=== PATIENT | female | born 1990 | race Caucasian/White ===

== ENCOUNTER 2021-04-04 10:04 | Inpatient (IN) ==
[2021-04-04] MEDS ORDERED: ONDANSETRON 4 MG/2 ML VIAL ONE (10:36)
[2021-04-04] MEDS ORDERED: HYDROmorphone 2 MG/1 ML VIAL ONE (10:38)
[2021-04-04] MEDS ORDERED: ACETAMINOPHEN 325 MG TABLET PO PRN (10:49)
[2021-04-04] MEDS ORDERED: PROMETHAZINE 25 MG/1 ML VIAL IM PRN (10:49)
[2021-04-04] MEDS: HYDROmorphone 2 MG/1 ML VIAL IV PRN ×3 (11:03→21:03)
[2021-04-04] MEDS: ONDANSETRON 4 MG/2 ML VIAL IV PRN (11:03)
[2021-04-04] MEDS ORDERED: TAMSULOSIN 0.4 MG CAPSULE PO ONE (11:07)
[2021-04-04] MEDS: SODIUM CHLORIDE 0.45% 1,000 ML IV SCH ×2 (11:18→20:54)
[2021-04-04] MEDS: TAMSULOSIN 0.4 MG CAPSULE PO SCH (11:24)
[2021-04-05] MEDS: HYDROmorphone 2 MG/1 ML VIAL IV PRN ×4 (03:55→22:16)
[2021-04-05] MEDS: SODIUM CHLORIDE 0.45% 1,000 ML IV SCH ×2 (05:32→15:36)
[2021-04-05 06:39] LABS: Basophils % 0.4 % (0.0-0.8); Eosinophils # 0.2 10*3/uL (0.0-0.87); Eosinophils % 2.8 % (0.00-10.9); Hematocrit 30.3 VOL% (35.7-47.0); Hemoglobin 10.2 GM/DL (12.0-16.0); Immature Granulocytes % 0.3 %; Immature Granulocytes Absolute 0.02 #; Lymphocytes # 2.2 10*3/uL (1.4-4.0); Lymphocytes % 27.9 % (21.3-54.2); Mean Corpuscular HGB Conc 33.7 GM/DL (32-36); Mean Corpuscular Volume 84.9 FL (87-102); Mean Platelet Volume 10.9 FL (9.6-12.0); Monocytes % 5.9 % (1.7-12.7); Neutrophils % 62.7 % (38.7-73.9); Platelet Count 158 T/CUMM (130-400); Red Blood Count 3.57 MC/CUMM (3.8-5.5); Red Cell Distribution Width 12.7 % (9.3-17.3)
[2021-04-05 06:52] LABS: Calcium 8.2 MG/DL (8.5-10.1); Potassium 3.7 MMOL/L (3.5-5.1)
[2021-04-05] MEDS: cefTRIAXone 1,000 MG in SODIUM CHLORIDE 0.9% 100 ML IV SCH (08:48)
[2021-04-05] MEDS: TAMSULOSIN 0.4 MG CAPSULE PO SCH (08:49)
[2021-04-06] MEDS: HYDROmorphone 2 MG/1 ML VIAL IV PRN ×3 (01:20→08:15)
[2021-04-06] MEDS: SODIUM CHLORIDE 0.45% 1,000 ML IV SCH ×4 (01:20→17:18)
[2021-04-06] MEDS ORDERED: cefTRIAXone 1,000 MG in SODIUM CHLORIDE 0.9% 100 ML IV ONE (06:00)
[2021-04-06] MEDS: ONDANSETRON 4 MG/2 ML VIAL IV PRN ×2 (08:15→13:15)
[2021-04-06] MEDS: TAMSULOSIN 0.4 MG CAPSULE PO SCH (08:16)
[2021-04-06] MEDS ORDERED: ROCURONIUM 50 MG/5 ML VIAL IV ONE ×2 (10:26→10:38)
[2021-04-06] MEDS ORDERED: LIDOCAINE 2% 5 ML VIAL ONE (10:26)
[2021-04-06] MEDS ORDERED: ONDANSETRON 4 MG/2 ML VIAL ONE (10:26)
[2021-04-06] MEDS ORDERED: fentaNYL 100 MCG/2 ML VIAL ONE (10:26)
[2021-04-06] MEDS ORDERED: propofoL 200 MG/20 ML VIAL IV ONE (10:26)
[2021-04-06] MEDS ORDERED: SUCCINYLCHOLINE 200 MG/10 ML VIAL ONE (10:26)
[2021-04-06] MEDS ORDERED: SEVOFLURANE 1 UNIT/15 MINUTE INH ONE (10:39)
[2021-04-06] MEDS ORDERED: LACTATED RINGERS 1,000 ML IV ONE (10:47)
[2021-04-06 11:10] LABS: Bacteria,Urine Occasional /HPF (Few); Bilirubin,Urine Negative (Negative); Blood, Urine Large mg/dL (Negative); Glucose,Urine (UA) Negative (Negative); Ketones,Urine 20 mg/dL (Negative); Mucus,Urine Occasional /LPF (Occasional); Nitrite,Urine Negative (Negative); Protein,Urine Negative; RBC,Urine 293 /HPF (0-4); Squamous Epithelial Cell,Urine Occasional /HPF (0-10); Urine Appearance Slightly Hazy (Clear); Urine Color Yellow (Yellow); Urine Specific Gravity 1.006 (1.001-1.035); Urine Urobilinogen < 2.0 EU/DL (0.2-1.0)
[2021-04-07] MEDS ORDERED: ONDANSETRON 4 MG TABLET PO PRN (06:40)
[2021-04-07 08:07] VITALS: BP 119/58
[2021-04-07] MEDS: cefTRIAXone 1,000 MG in SODIUM CHLORIDE 0.9% 100 ML IV SCH (08:26)
[2021-04-07] MEDS: TAMSULOSIN 0.4 MG CAPSULE PO SCH (08:26)
[2021-04-07 08:52] LABS: Basophils % 0.6 % (0.0-0.8); Eosinophils # 0.1 10*3/uL (0.0-0.87); Hematocrit 30.8 VOL% (35.7-47.0); Immature Granulocytes % 0.4 %; Immature Granulocytes Absolute 0.03 #; Lymphocytes # 1.7 10*3/uL (1.4-4.0); Lymphocytes % 24.5 % (21.3-54.2); Mean Corpuscular HGB Conc 32.5 GM/DL (32-36); Mean Corpuscular Volume 84.6 FL (87-102); Mean Platelet Volume 11.5 FL (9.6-12.0); Monocytes % 4.6 % (1.7-12.7); Neutrophils % 67.9 % (38.7-73.9); Platelet Count 182 T/CUMM (130-400); Red Blood Count 3.64 MC/CUMM (3.8-5.5); Red Cell Distribution Width 12.7 % (9.3-17.3)
[2021-04-07] MEDS ORDERED: MULTIVITAMIN (PRENATAL) TABLET PO SCH (09:00)
[2021-04-07] MEDS ORDERED: FOLIC ACID 1 MG TABLET PO SCH (09:00)
[2021-04-07 09:11] LABS: Calcium 8.6 MG/DL (8.5-10.1); Osmolality,Calculated 269.7 MOS/KG (273-304); Potassium 3.9 MMOL/L (3.5-5.1)
[2021-04-09] MEDS ORDERED: cefTRIAXone 1,000 MG in SODIUM CHLORIDE 0.9% 100 ML IV ONE (07:00)
== END 2021-04-07 10:38 | disposition home or self-care (01) | DRG 818 ==
LOC: N.EDINP 10:04 → N.ED 10:04 → N.5E 13:58
PROVIDERS: ADMIT Surgery; ATTEND Surgery

== ENCOUNTER 2021-08-27 15:31 | Inpatient (IN) ==
[2021-08-27] MEDS ORDERED: MEPERIDINE 50 MG/1 ML VIAL IV PRN (16:06)
[2021-08-27] MEDS ORDERED: ONDANSETRON 4 MG/2 ML VIAL IV PRN (16:06)
[2021-08-27] MEDS ORDERED: BUTORPHANOL 2 MG/ML VIAL IV PRN (16:06)
[2021-08-27] MEDS ORDERED: CARBOPROST TROMETHAMINE 250 MCG/ML AMP IM PRN (16:06)
[2021-08-27] MEDS ORDERED: miSOPROStoL 200 MCG TABLET RECTAL PRN (16:06)
[2021-08-27] MEDS ORDERED: METHYLERGONOVINE 0.2 MG/1 ML AMP IM PRN (16:06)
[2021-08-27] MEDS ORDERED: TRANEXAMIC ACID 1,000 MG in SODIUM CHLORIDE 0.9% 100 ML IV PRN (16:06)
[2021-08-27] MEDS ORDERED: OXYTOCIN/LR 20 UNIT/1,000 ML BAG IV ONE (16:30)
[2021-08-27 16:32] LABS: Basophils % 0.5 % (0.0-0.8); Eosinophils # 0.1 10*3/uL (0.0-0.87); Eosinophils % 1.7 % (0.00-10.9); Hemoglobin 10.9 GM/DL (12.0-16.0); Immature Granulocytes % 0.3 %; Immature Granulocytes Absolute 0.02 #; Lymphocytes # 2.3 10*3/uL (1.4-4.0); Lymphocytes % 30.5 % (21.3-54.2); Mean Corpuscular HGB Conc 32.1 GM/DL (32-36); Mean Corpuscular Volume 82.9 FL (87-102); Mean Platelet Volume 12.4 FL (9.6-12.0); Monocytes % 5.1 % (1.7-12.7); Neutrophils % 61.9 % (38.7-73.9); Platelet Count 129 T/CUMM (130-400); White Blood Count 7.6 T/CUMM (4-12)
[2021-08-27 16:57] LABS: Alanine Aminotransferase 15 U/L (13-56); Albumin 2.7 G/DL (3.4-5.0); Alkaline Phosphatase 116 U/L (45-117); Aspartate Amino Transferase 14 U/L (0-37); Bilirubin,Total < 0.39 MG/DL (0.20-1.00); Blood Urea Nitrogen 12 MG/DL (7-18); Calcium 8.7 MG/DL (8.5-10.1); Carbon Dioxide 23 MMOL/L (21-32); Estimated Glom Filtration Rate 146 ML/MIN; Glucose 67 MG/DL (74-106); Potassium 3.8 MMOL/L (3.5-5.1); Sodium 136 MMOL/L (136-145); Total Protein 6.9 G/DL (6.4-8.2); Uric Acid 5.7 MG/DL (2.6-6.0)
[2021-08-27] MEDS ORDERED: CITRIC ACID/SODIUM CITRATE 30 ML UDCUP PO ONE (16:57)
[2021-08-27] MEDS ORDERED: FAMOTIDINE 20 MG/2 ML VIAL IV ONE (16:57)
[2021-08-27] MEDS ORDERED: LACTATED RINGERS 1,000 ML IV ONE (16:57)
[2021-08-27] MEDS ORDERED: NALOXONE 0.4 MG/ML VIAL IV PRN (16:58)
[2021-08-27] MEDS ORDERED: PROMETHAZINE 25 MG/1 ML VIAL IM ONE (16:58)
[2021-08-27] MEDS ORDERED: LACTATED RINGERS 250 ML IV PRN (16:58)
[2021-08-27] MEDS ORDERED: hydrOXYzine HCL 25 MG/1 ML VIAL IM PRN (16:58)
[2021-08-27] MEDS ORDERED: diphenhydrAMINE 50 MG/1 ML VIAL IV PRN ×2 (16:58)
[2021-08-27] MEDS ORDERED: ePHEDrine 50 MG/ML VIAL IV PRN (16:58)
[2021-08-27] MEDS: LACTATED RINGERS 1,000 ML IV SCH (17:24)
[2021-08-27] MEDS: fentaNYL 2 MCG/ROPIV 0.2% EPID 100 ML EPIDURAL SCH (17:45)
[2021-08-27 20:09] LABS: Mucus,Urine Occasional /LPF (Occasional); RBC,Urine 1 /HPF (0-4); Squamous Epithelial Cell,Urine Occasional /HPF (0-10)
[2021-08-27 20:10] LABS: Urine Color Yellow (Yellow)
[2021-08-27 20:11] LABS: Bilirubin,Urine Negative (Negative); Blood, Urine Trace mg/dL (Negative); Glucose,Urine (UA) Negative (Negative); Ketones,Urine 40 mg/dL (Negative); Nitrite,Urine Negative (Negative); Protein,Urine Negative (Negative); Urine Appearance Clear (Clear); Urine Urobilinogen 0.2 eU/dL (<2.0)
[2021-08-28] MEDS: fentaNYL 2 MCG/ROPIV 0.2% EPID 100 ML EPIDURAL SCH ×2 (02:13→11:04)
[2021-08-28] MEDS: LACTATED RINGERS 1,000 ML IV SCH ×2 (02:18→07:56)
[2021-08-28] MEDS ORDERED: OXYTOCIN/LR 20 UNIT/1,000 ML BAG IV SCH (08:30)
[2021-08-28] MEDS ORDERED: OXYTOCIN/LR 30 UNIT/1,000 ML BAG IV ONE (13:58)
[2021-08-28] MEDS ORDERED: LANOLIN 50% CREAM 0.3 OZ TUBE TOP PRN (14:39)
[2021-08-28] MEDS ORDERED: OXYTOCIN/LR 20 UNIT/1,000 ML BAG IV ONE (14:39)
[2021-08-28] MEDS ORDERED: BENZOCAINE 20%/MENTHOL 0.5% SPRAY 56 GM CAN TOP PRN (14:39)
[2021-08-28] MEDS ORDERED: oxyCODONE/ACETAMINOPHEN 5-325 MG TABLET PO PRN ×2 (14:39)
[2021-08-28] MEDS ORDERED: RHO(D) IMMUNE GLOBULIN 300 MCG SYRINGE IM ONE (14:39)
[2021-08-28] MEDS ORDERED: BISACODYL 10 MG SUPP RECTAL PRN (14:39)
[2021-08-28] MEDS ORDERED: ACETAMINOPHEN 325 MG TABLET PO PRN (14:39)
[2021-08-28] MEDS ORDERED: DIPH/TET/ACEL PERT BOOSTER VACCINE 0.5 ML VIAL IM ONE (14:39)
[2021-08-28] MEDS ORDERED: HYDROCORTISONE 2.5% RECTAL CREAM 30 GM TUBE TOP PRN (14:39)
[2021-08-28] MEDS ORDERED: WITCH HAZEL PADS 100/JAR TOP PRN (14:39)
[2021-08-28] MEDS ORDERED: ONDANSETRON 4 MG/2 ML VIAL IV PRN (14:39)
[2021-08-28] MEDS ORDERED: MEASLES/MUMPS/RUBELLA VACCINE 0.5 ML VIAL SUBCUT ONE (14:39)
[2021-08-28 15:01] LABS: Cord Venous Blood HCO3 22.1 MMOL/L; Cord Venous Blood PCO2 38.6 MMHG
[2021-08-28] MEDS: DOCUSATE SODIUM 100 MG CAPSULE PO SCH (21:15)
[2021-08-28] MEDS: IBUPROFEN 800 MG TABLET PO PRN (21:15)
[2021-08-28] MEDS: SERTRALINE 50 MG TABLET PO SCH (21:24)
[2021-08-29 06:38] LABS: Basophils % 0.4 % (0.0-0.8); Eosinophils # 0.2 10*3/uL (0.0-0.87); Eosinophils % 2.8 % (0.00-10.9); Hematocrit 29.3 VOL% (35.7-47.0); Hemoglobin 9.4 GM/DL (12.0-16.0); Immature Granulocytes % 0.4 %; Immature Granulocytes Absolute 0.03 #; Lymphocytes # 2.1 10*3/uL (1.4-4.0); Lymphocytes % 31.5 % (21.3-54.2); Mean Corpuscular HGB Conc 32.1 GM/DL (32-36); Mean Corpuscular Volume 82.1 FL (87-102); Mean Platelet Volume 12.2 FL (9.6-12.0); Monocytes % 5.6 % (1.7-12.7); Neutrophils % 59.3 % (38.7-73.9); Platelet Count 107 T/CUMM (130-400); Red Blood Count 3.57 MC/CUMM (3.8-5.5); Red Cell Distribution Width 13.9 % (9.3-17.3); White Blood Count 6.7 T/CUMM (4-12)
[2021-08-29] MEDS: DOCUSATE SODIUM 100 MG CAPSULE PO SCH ×2 (08:08→21:09)
[2021-08-29] MEDS: IBUPROFEN 800 MG TABLET PO PRN (14:37)
[2021-08-29] MEDS: SERTRALINE 50 MG TABLET PO SCH (21:08)
[2021-08-30 07:23] VITALS: BP 125/76
[2021-08-30] MEDS: DOCUSATE SODIUM 100 MG CAPSULE PO SCH (09:29)
== END 2021-08-30 14:35 | disposition home or self-care (01) | DRG 807 ==
LOC: N.LDOUT 15:31 → N.LD 15:34 → N.OB 08-28 17:19
PROVIDERS: ADMIT Obstetrics & Gynecology; ATTEND Obstetrics & Gynecology